=== PATIENT | male | born 1960 | race Hispanic/Latino ===

== ENCOUNTER 2019-12-15 09:29 | Emergency (ER) | payer BC, OTHER ==
[2019-12-15 18:09] LABS: SARS-CoV-2 MS2 Positive; SARS-CoV-2 N Gene Positive; SARS-CoV-2 S Gene Positive; SARS-CoV-2 orf1ab Positive
== END 2019-12-15 10:49 | disposition home or self-care (01) ==
LOC: ERS 09:29
DX: U07.1 COVID-19 (principal); R05 Cough; R09.81 Nasal congestion; Z87.891 Personal history of nicotine dependence
CPT/HCPCS: 87635; 99283; U0003

== ENCOUNTER 2024-12-29 11:34 | Outpatient (CLI) | payer BC | END 2024-12-29 11:35 | disposition home or self-care (01) | LOC: RAD 11:34 | PROVIDERS: ATTEND Family Medicine | DX: M79.672 Pain in left foot (principal); M77.32 Calcaneal spur, left foot ==